=== PATIENT | female | born 1965 | race American Indian/Alaskan Native ===

== ENCOUNTER 2018-06-17 20:42 | Emergency (ER) | payer OTHER ==
[2018-06-17 20:52] VITALS: BP 130/55
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
--- NOTE | 2018-06-20 07:03 | CR ---
Left knee: AP, lateral and sunrise patellar views of the left knee were obtained. Comparison: No prior knee exam. Joint space narrowing is noted within the lateral patellofemoral joint with lateral patellar osteophyte. Superior patellar osteophyte are also noted. Small bony exostosis compatible with ligamentous calcification is noted off the medial knee. No joint effusion is seen. No acute fracture or dislocation is noted. Degenerative spurring is noted within the intercondylar notch and off the tibial spines. Impression: 1. Degenerative change as noted above. 2. Nothing acute is appreciated on left knee exam. Diagnostic code #3
--- NOTE | 2018-06-20 08:14 | CR ---
Right tibia and fibula: Two portable views of the right tibia and fibula were obtained. Comparison: No prior study. No discrete fracture or other bony abnormality is seen. Impression: 1. Nothing acute is seen on two-view portable right tibia and fibula study. Diagnostic code #1
--- NOTE | 2018-06-20 09:06 | CT ---
Head CT Technique: Multiple axial sections through the brain were obtained. Intravenous contrast was not utilized. Comparison: No prior intracranial imaging. Findings: Ventricles along with basal cisterns and sulci over the convexities are within normal limits for the patient's age. No abnormal parenchymal densities are seen. No evidence of intracranial hemorrhage. No midline shift or mass effect is seen. Bone window settings were reviewed which show the visualized sinuses to appear clear. No acute calvarial abnormality is appreciated. Impression: 1. Nothing acute is seen on noncontrast head CT exam. Diagnostic code #1 I agree with preliminary report from [facility], finalized on 06/17/18, 11:04 PM Central Time
== END 2018-06-17 23:40 | disposition home or self-care (01) ==
LOC: JD.ED 20:42
DX: S09.90XA Unspecified injury of head, initial encounter (principal); S80.02XA Contusion of left knee, initial encounter; S80.11XA Contusion of right lower leg, initial encounter; F17.210 Nicotine dependence, cigarettes, uncomplicated; E03.9 Hypothyroidism, unspecified; V43.53XA Car driver injured in collision with pick-up truck in traffic accident, initial encounter
CPT/HCPCS: 36415; 70450; 73562; 73590; 80053; 85025; 93005; 99285; G0480; 93010; 99283